=== PATIENT | female | born 1985 | race Caucasian/White ===

== ENCOUNTER 2017-10-01 10:50 | Emergency (ER) | payer OTHER ==
[~2017-10-01] VITALS: Ht 160 cm; Wt 61.2 kg
--- NOTE | 2017-10-01 11:44 | ED GI/GU/ABDOMINAL COMPLAINT ---
History of Present Illness General Chief Complaint: Female Urogenital Problems Stated Complaint: FREQUENCY IN URINATION, LEFTS SIDED BACK PAIN Source: patient Exam Limitations: no limitations Vital Signs & Intake/Output Vital Signs & Intake/Output Vital Signs Date Time Temp Pulse Resp B/P B/P Pulse O2 O2 Flow FiO2 Mean Ox Delivery Rate 10/01 1357 98.6 66 18 101/62 100 Room Air 10/01 1204 98 Room Air 10/01 1055 98.1 84 20 127/78 98 Room Air Allergies Coded Allergies: Penicillins (RASH 10/01/17) Reconcile Medications Norethindrone-E.estradiol-Iron (Lo Loestrin Fe 1-10 Tablet) 1MG-10(24) TABLET 1 TAB PO DAILY BC (Reported) Phenazopyridine HCl (Pyridium) 200 MG TABLET 1 TAB PO TID dyuria Quetiapine Fumarate (Seroquel) 50 MG TABLET 1 TAB PO QPM SLEEP (Reported) Tramadol HCl 50 MG TABLET 1-2 TAB PO Q6P PRN pain Zolpidem Tartrate 10 MG TABLET 1 TAB PO QPMP PRN SLEEP (Reported) Triage Note: PT TO ED C/O BLADDER PRESSURE WITH URINARY URGENCY. HAD NEGATIVE URINE AT WALK IN, WAS GIVEN ABX, HAS BEEN TAKING THEM WITH NO RELIEF. C/O LEFT FLANK PAIN. Triage Nurses Notes Reviewed? yes ? N Is pt currently ? No Onset: Abrupt Duration: day(s): (FEW), constant Timing: recent history Radiation: no radiation Activities at Onset: none Prior Abdominal Problems: none No Modifying Factors: none HPI: 32-year-old female comes into the emergency room with complaints of persistent UTI symptoms. Patient was seen at the walk-in clinic. She was having increased frequency burning and urgency. Lower abdominal pressure. She started on antibiotic. She did also having some associated low back pain. The urine culture came back negative today. The walk-in clinic told her that there was no infection seen in the urine. She still having persistent symptoms. She comes into the emergency room for further evaluation. Denies any fever chills vomiting. Denies any prior abdominal surgeries. She reports some light vaginal discharge but normal for her. (Bennett SERNA,Iron) Past History Travel History Traveled to [place] past 21 day No Medical History Any Pertinent Medical History? see below for history Psychiatric: insomnia Surgical History Surgical History: NO ABDOMINAL SURGERIES Psychosocial History What is your primary language Georgian Tobacco Use: Never used ETOH Use: denies use Illicit Drug Use: denies illicit drug use Family History Hx Contributory? No (Iron Jackman) Review of Systems Review of Systems Constitutional: Reports: no symptoms. EENTM: Reports: no symptoms. Respiratory: Reports: no symptoms. Cardiovascular: Reports: no symptoms. GI: Reports: see HPI. Genitourinary: Reports: see HPI. Musculoskeletal: Reports: no symptoms. Skin: Reports: no symptoms. Neurological/Psychological: Reports: no symptoms. Hematologic/Endocrine: Reports: no symptoms. Immunologic/Allergic: Reports: no symptoms. All Other Systems: Reviewed and Negative (Iron Jackman) Physical Exam Physical Exam General Appearance: well developed/nourished, no apparent distress, alert, awake Head: atraumatic Eyes: Bilateral: normal appearance. Ears, Nose, Throat, Mouth: hearing grossly normal, moist mucous membrane Neck: normal inspection Respiratory: normal breath sounds, no respiratory distress Cardiovascular: regular rate/rhythm Gastrointestinal: soft, tenderness (SUPRAPUBIC) Pelvic: discharge (from cervix) Back: normal inspection Extremities: normal range of motion Neurologic/Psych: awake, alert, oriented x 3, normal gait Skin: intact, normal color Core Measures ACS in differential dx? No Sepsis Present: No Sepsis Focused Exam Completed? No (Iron Jackman) Progress Differential Diagnosis: appendicitis, bowel obstruction, diverticulitis, ectopic , kidney stone, ovarian cyst, pancreatitis, UTI/pyelo Plan of Care: Orders Procedure Date/time Status TRICHOMONAS 10/01 1506 Active POTASSIUM HYDROXIDE (NAZIA) 10/01 1506 Active GENITAL CULTURE 10/01 1506 Active CHLAMYDIA-GC DNA PROBE 10/01 1506 Active Add-on Test (ER Only) 10/01 1504 Active LIPASE 10/01 1143 Complete LACTIC ACID 10/01 1143 Complete COMPREHENSIVE METABOLIC PANEL 10/01 1143 Complete CBC WITHOUT DIFFERENTIAL 10/01 1143 Complete CULTURE,URINE 10/01 1116 Active URINE 10/01 1058 Complete URINALYSIS 10/01 1058 Complete Laboratory Tests 10/01/17 1443: Lactic Acid Cancelled 10/01/17 1200: Anion Gap 15, Estimated GFR > 60, BUN/Creatinine Ratio 11.4, Glucose 96, Lactic Acid 0.6 L, Calcium 9.9, Total Bilirubin 0.8, AST 14, ALT 24, Alkaline Phosphatase 55, Total Protein 8.0, Albumin 4.6, Globulin 3.4, Albumin/Globulin Ratio 1.4, Lipase 83, CBC w Diff NO MAN DIFF REQ, RBC 4.57, MCV 84.7, MCH 28.9, MCHC 34.1, RDW 12.4, MPV 8.4, Gran % 80.5 H, Lymphocytes % 15.4 L, Monocytes % 3.2, Eosinophils % 0.3, Basophils % 0.6, Absolute Granulocytes 5.8, Absolute Lymphocytes 1.1 L, Absolute Monocytes 0.2, Absolute Eosinophils 0, Absolute Basophils 0 10/01/17 1116: Urine Color YEL, Urine Clarity CLEAR, Urine pH 6.0, Ur Specific [place] 1.010, Urine Protein NEG, Urine Ketones NEG, Urine Nitrite NEG, Urine Bilirubin NEG, Urine Urobilinogen 0.2, Ur Leukocyte Esterase NEG, Ur Microscopic EXAM NOT REQUIRED, Urine Hemoglobin NEG, Urine Glucose NEG, Urine Test NEGATIVE Microbiology 10/01 1500 GENITAL: GC DNA Probe - RECD 10/01 1500 GENITAL: Chlamydia DNA Probe (DARIA) - RECD 10/01 1500 GENITAL: NAZIA Preparation - RECD 10/01 1500 GENITAL: Trichomonas Preparation - RECD 10/01 1500 GENITAL: Genital Culture - RECD 10/01 1116 URINE ROUT: Urine Culture - RECD Diagnostic Imaging: Viewed by Me: CT Scan. Discussed w/RAD: CT Scan. Radiology Impression: PATIENT: LITO AMEZQUITA PRESENT AGE: 32 PATIENT ACCOUNT NO: [id number] : 84 LOCATION: [facility] ORDERING PHYSICIAN: Iron SERNA SERVICE DATE: 10/01/17 EXAM TYPE : CAT - CT ABD & PELVIS W IV CONTRAST EXAMINATION: CT ABDOMEN AND PELVIS WITH CONTRAST CLINICAL INFORMATION: Bilateral flank pain. COMPARISON: None. TECHNIQUE : Contiguous axial thin section helical images of the abdomen and pelvis were performed following the administration of 95 mL of intravenous Optiray 320. The data set was reformatted in the coronal and sagittal planes and reviewed on an independent workstation. DLP: 248 mGy-cm. FINDINGS: The visualized lung bases are clear. The visualized portions of the heart are unremarkable. The liver is of normal size and attenuation without intrahepatic biliary ductal dilation. There are several subcentimeter low-attenuation lesions within the liver which are too small to fully characterize, but could correspond to cysts. A normal gallbladder is identified. There is no wall thickening or discernible pericholecystic fluid. The spleen, pancreas, adrenal glands are unremarkable. Both kidneys are of normal size and attenuation without hydronephrosis or nephrolithiasis. There are small bilateral extrarenal pelves. Following the administration of IV contrast, prompt symmetric nephrograms are displayed. There is no abdominal free fluid. There is neither mesenteric nor retroperitoneal lymphadenopathy. Normal unopacified loops of small and large bowel are identified. A normal appendix is identified. There is no pelvic free fluid. The urinary bladder is unremarkable. There is neither pelvic nor inguinal lymphadenopathy. Bone windows: Neither sclerotic nor lytic bone lesions are identified. IMPRESSION: No evidence for acute abdominal or pelvic inflammatory or infectious processes. DICTATED BY: Chris Harrell MD DATE/TIME DICTATED:10/01 MANAGER BEHAVIORAL:ANGELES DATE/TIME TRANSCRIBED:10/01/171402 CONFIDENTIAL, DO NOT COPY WITHOUT APPROPRIATE AUTHORIZATION. <Electronically signed in Other Vendor System> SIGNED BY: Chris Harrell MD 10/01/17 1410 Initial ED EKG: none (Bennett SERNA,Iron) Departure Departure Disposition: HOME OR SELF CARE Condition: Stable Clinical Impression Primary Impression: Abdominal pain Referrals: Fam Epps MD (PCP/Family) Additional Instructions: Take Pyridium and tramadol as prescribed. Fill prescription for Bactrim. Return if any other concerns worsening symptoms. Please go over all results of today's visit with your primary care doctor. Contact your primary care doctor to let them know you were here in the emergency room. There may be nonspecific findings which may not be related to your visit today here in the emergency room but may require further evaluation and chronic monitoring by your primary care doctor. If you had a laceration today the chance of foreign body always remains. You should follow-up with your primary care doctor for recheck in 3-5 days for a wound check. If you had an x-ray done there is a chance that a fracture could have been missed on initial read and you should follow-up with your primary care doctor for repeat x-rays if symptoms persist. If your blood pressure was elevated here in the emergency room please have rechecked by the [facility] primary care doctor within the next 48. If you were prescribed a narcotic here in the emergency room or any type of controlled substances you're not allowed to drive while taking this medication or operate any type of heavy machinery. Narcotics can make you feel lightheaded dizziness nausea and can cause constipation. You may need to crab picker a stool softener. Thank you for choosing [facility] emergency room. Please return to the emergency room immediately if you have any other concerns worsening of symptoms. Departure Forms: Customer Survey General Discharge Information Prescriptions: Current Visit Scripts Phenazopyridine HCl (Pyridium) 1 TAB PO TID #9 TAB Tramadol HCl 1-2 TAB PO Q6P PRN pain #15 TAB Comments 10/01/2017 3:32:19 PM Patient clinically looks well. Patient is in no apparent distress. Nontoxic- appearing. Etiology of pain unclear. Due to the minimal amount of discharge, shared decision making with the patient and she would rather not prophylactically be treated with antibiotics. She is in a monogamous relationship for about 2 years. No acute abdomen on exam. Follow-up with PCP. Return if any concerns worsening symptoms. (Bennett SERNA,Iron) PA/PACKING MACHINE INSPECTOR Co-Sign Statement Statement: ED Attending supervision documentation- [] I saw and evaluated the patient. I have also reviewed all the pertinent lab results and diagnostic results. I agree with the findings and the plan of care as documented in the PA's/PACKING MACHINE INSPECTOR's documentation. [X] I have reviewed the ED Record and agree with the PA's/PACKING MACHINE INSPECTOR's documentation. [] Additions or exceptions (if any) to the PAs/PACKING MACHINE INSPECTOR's note and plan are summarized below: [] (Kyler BAY,Paul Linn)
[2017-10-01] MEDS ORDERED: ZOLPIDEM TARTRA10 M1 PO (11:53)
[2017-10-01] MEDS ORDERED: SEROQUEL50 M1 PO (11:53)
[2017-10-01] MEDS ORDERED: LO LOESTRIN FE1 EACH PO (11:54)
[2017-10-01 12:07] LABS: ABSOLUTE BASOPHIL COUNT 0 /CUMM (0.0-0.2); ABSOLUTE EOSINOPHIL COUNT 0 /CUMM (0.0-0.7); ABSOLUTE GRANULOCYTE CT 5.8 /CUMM (1.4-6.5); ABSOLUTE LYMPH COUNT 1.1 /CUMM (1.2-3.4); ABSOLUTE MONOCYTE COUNT 0.2 /CUMM (0.10-0.60); BASOPHIL % 0.6 % (0.0-2.0); EOSINOPHIL % 0.3 % (0-5); GRANULOCYTE % 80.5 % (42.2-75.2); HEMATOCRIT 38.8 % (37-47); MEAN CORPUSCULAR HGB 28.9 PG (27.0-31.0); MEAN CORPUSCULAR HGB CONC 34.1 G/DL (33.0-37.0); MEAN CORPUSCULAR VOLUME 84.7 FL (81.0-99.0); MEAN PLATELET VOLUME 8.4 FL (7.4-10.4); PLATELET COUNT 289 /CUMM (130-400); RBC DISTRIBUTION WIDTH 12.4 % (11.5-14.5); RED BLOOD CELL CT 4.57 /CUMM (4.20-5.40); WHITE BLOOD CELL COUNT 7.2 /CUMM (4.8-10.8)
[2017-10-01 13:57] VITALS: BP 101/62
--- NOTE | 2017-10-01 14:10 | CT SCAN REPORT ---
EXAMINATION: CT ABDOMEN AND PELVIS WITH CONTRAST CLINICAL INFORMATION: Bilateral flank pain. COMPARISON: None. TECHNIQUE: Contiguous axial thin section helical images of the abdomen and pelvis were performed following the administration of 95 mL of intravenous Optiray 320. The data set was reformatted in the coronal and sagittal planes and reviewed on an independent workstation. DLP: 248 mGy-cm. FINDINGS: The visualized lung bases are clear. The visualized portions of the heart are unremarkable. The liver is of normal size and attenuation without intrahepatic biliary ductal dilation. There are several subcentimeter low-attenuation lesions within the liver which are too small to fully characterize, but could correspond to cysts. A normal gallbladder is identified. There is no wall thickening or discernible pericholecystic fluid. The spleen, pancreas, adrenal glands are unremarkable. Both kidneys are of normal size and attenuation without hydronephrosis or nephrolithiasis. There are small bilateral extrarenal pelves. Following the administration of IV contrast, prompt symmetric nephrograms are displayed. There is no abdominal free fluid. There is neither mesenteric nor retroperitoneal lymphadenopathy. Normal unopacified loops of small and large bowel are identified. A normal appendix is identified. There is no pelvic free fluid. The urinary bladder is unremarkable. There is neither pelvic nor inguinal lymphadenopathy. Bone windows: Neither sclerotic nor lytic bone lesions are identified. IMPRESSION: No evidence for acute abdominal or pelvic inflammatory or infectious processes.
[2017-10-01] MEDS ORDERED: PYRIDIUM200 M1 PO (15:05)
[2017-10-01] MEDS ORDERED: TRAMADOL HCL50 M1 PO (15:05)
== END 2017-10-01 15:25 ==
LOC: ERH 10:50
PROVIDERS: Physician Assistant Medical
DX: R10.32 Left lower quadrant pain (principal)
CPT/HCPCS: 87070; 74177; 81003; 81025; 87086; 87491; 87591